=== PATIENT | male | born 1945 | race Caucasian/White ===

== ENCOUNTER 2017-01-09 01:14 | Emergency (ER) | payer MEDICARE ==
[~2017-01-09] VITALS: Ht 185.4 cm; Wt 143.0 kg
[~2017-01-09 01:14] MED LIST: ASPI325T PO; CARD240C6 PO; DHEA50CA PO; GLUCTAB PO; HYDR-3533 PO; METO50TA PO; PRAZ2 PO; PRAZ5CAP16 PO; RANI150 PO
[2017-01-09] MEDS ORDERED: IOHEXOL 350 MG/ML 10 ML VIAL (for RAD DIAG) IVCONTRAST ONE (01:15)
[2017-01-09 01:19] VITALS: BP 169/93; PULSE 80; RESP 14; TEMP 97.6; O2SAT 90
[2017-01-09] MEDS ORDERED: SODIUM CHLOR 0.9% 1000 ML INJ 1,000 ML IV SCH (01:42)
[2017-01-09 02:14] LABS: AUTOMATED NEUTROPHIL # 6.7 TH/MM3 (1.8-7.7); BASOPHIL # 0.4 TH/MM3 (0-0.2); BASOPHIL % 4.9 % (0.0-2.0); EOSINOPHIL # 0.1 TH/MM3 (0-0.4); EOSINOPHIL % 0.8 % (0.0-4.0); HEMATOCRIT 46.7 % (39.0-51.0); HEMO FLAGS DIFF FINAL; LYMPH % 11.9 % (9.0-44.0); LYMPHOCYTE # 1.1 TH/MM3 (1.0-4.8); MEAN CELL VOLUME 89.2 FL (80.0-100.0); MEAN CORPUSCULAR HEMOGLOBIN 28.3 PG (27.0-34.0); MEAN CORPUSCULAR HGB CONC 31.7 % (32.0-36.0); MONO % 7.8 % (0.0-8.0); NEUT % 74.6 % (16.0-70.0); PLATELET COUNT 202 TH/MM3 (150-450); RED BLOOD COUNT 5.23 MIL/MM3 (4.50-5.90); RED CELL DISTRIBUTION WIDTH 14.2 % (11.6-17.2)
[2017-01-09 02:21] LABS: CHLORIDE 104 MEQ/L (98-107); POTASSIUM 4.3 MEQ/L (3.5-5.1); SODIUM (NA) 140 MEQ/L (136-145)
[2017-01-09 02:25] LABS: ANION GAP 7 MEQ/L (5-15); BICARBONATE 28.7 MEQ/L (21.0-32.0); BLOOD UREA NITROGEN 17 MG/DL (7-18)
[2017-01-09] MEDS ORDERED: METF500T PO (02:25)
[2017-01-09] MEDS ORDERED: CARD240C6 PO (02:25)
[2017-01-09] MEDS ORDERED: PRAZ2CAP PO (02:25)
[2017-01-09] MEDS ORDERED: METO-426 PO (02:25)
[2017-01-09] MEDS ORDERED: ASPI-183 PO (02:25)
[2017-01-09] MEDS ORDERED: RANI150T PO (02:25)
[2017-01-09 02:28] LABS: ALT (GPT) 25 U/L (12-78); AST (GOT) 15 U/L (15-37); GLOMERULAR FILTRATION RATE 60 ML/MIN (>89)
[2017-01-09 02:29] LABS: TOTAL BILIRUBIN ADULT 0.4 MG/DL (0.2-1.0)
[2017-01-09 02:31] LABS: ALKALINE PHOSPHATASE 107 U/L (45-117)
[2017-01-09 02:40] LABS: BLOOD, URINE MOD (NEG); GLUCOSE,URINE NEG (NEG); KETONE, URINE TRACE mg/dL (NEG); NITRITE,URINE NEG (NEG); PH, URINE 5.5 (5.0-8.5)
--- NOTE | 2017-01-09 02:40 | PD ---
HPI Chief Complaint: Abdominal Pain Time Seen by Provider: 01:31 Travel History International Travel<30 days: No Contact w/Intl Traveler<30days: No Traveled to known affect area: No History of Present Illness HPI This is a 71-year-old male who presents to the emergency Department with onset about 5 hours ago of abdominal pain that feels like a band wrapped around his abdomen, constant, moderate severity with no associated fevers or chills. He had a normal bowel movement one hour ago. He denies any diarrhea. He has felt nauseous but denies any vomiting. He's never had pain like this before. PFSH Past Medical History Arthritis: No Asthma: No Atrial Fibrillation: Yes Autoimmune Disease: No Blood Disorders: No Anxiety: Yes Depression: Yes Heart Rhythm Problems: Yes (AFIB) Cancer: No Cardiac Catheterization: Yes (TWICE, NO STENTS) Cardiovascular Problems: Yes High Cholesterol: Yes Chemotherapy: No Chest Pain: No Congestive Heart Failure: No COPD: No Cerebrovascular Accident: No Diabetes: Yes Patient Takes Glucophage: Yes Diminished Hearing: No Endocrine: No GERD: Yes Glaucoma: No Genitourinary: No Headaches: No Hepatitis: No Hiatal Hernia: No Hypertension: Yes Immune Disorder: No Kidney Stones: No Musculoskeletal: No Neurologic: No Psychiatric: No Reproductive: No Respiratory: No Immunizations Current: No Migraines: No Myocardial Infarction: No Pneumonia: Yes Radiation Therapy: No Renal Failure: No Seizures: No Sickle Cell Disease: No Sleep Apnea: No Thyroid Disease: No Ulcer: No Tetanus Vaccination: < 5 Years Influenza Vaccination: Yes Past Surgical History Abdominal Surgery: No AICD: No Appendectomy: No Arteriovenous Shunt: No Cardiac Surgery: No Cholecystectomy: No Ear Surgery: No Endocrine Surgery: No Eye Surgery: Yes (BILATERAL LENSE REPLACED) Genitourinary Surgery: No Gynecologic Surgery: No Insulin Pump: No Joint Replacement: No Oral Surgery: Yes (TONSILECTOMY) Pacemaker: No Thoracic Surgery: No Tonsillectomy: Yes ("I WAS IN 9TH GRADE") Other Surgery: Yes Social History Alcohol Use: Yes (TWICE A WEEK) Tobacco Use: No Substance Use: No Allergies-Medications (Allergen,Severity, Reaction): Coded Allergies: penicillin G (Unverified Allergy, Severe, FINGER BLISTERS, 01/09/17) Reported Meds & Prescriptions Reported Meds & Active Scripts Active Reported Ranitidine (Ranitidine HCl) 150 Mg Tab 150 Mg PO BID Prazosin (Prazosin HCl) 2 Mg Cap 2 Mg PO BID Metoprolol Tartrate 75 Mg Tab 75 Mg PO BID Metformin (Metformin HCl) 500 Mg Tab 500 Mg PO BIDPC Cardizem CD 24 HR (Diltiazem CD 24 HR) 240 Mg Caper 240 Mg PO DAILY Aspirin 325 Mg Tab 325 Mg PO DAILY Review of Systems Except as stated in HPI: all other systems reviewed are Neg Physical Exam Narrative GENERAL:Well appearing, no acute distress SKIN: Focused skin assessment warm and dry. HEAD: Atraumatic. Normocephalic. EYES: Pupils equal and round. No injection or drainage. ENT: Moist mucous membranes NECK: Trachea midline. CARDIOVASCULAR: Regular rate and rhythm. No murmur appreciated. RESPIRATORY: Clear to auscultation. Breath sounds equal bilaterally. GASTROINTESTINAL: Abdomen soft, mildly tender to palpation in the epigastrium with no rebound or guarding. MUSCULOSKELETAL: No obvious deformities. NEUROLOGICAL: Awake and alert. No obvious cranial nerve deficits. Moving all extremities. PSYCHIATRIC: Appropriate mood and affect; insight and judgment normal. Data Data Last Documented VS Vital Signs Date Time Temp Pulse Resp B/P (MAP) Pulse Ox O2 Delivery O2 Flow Rate FiO2 01/09/17 02:20 Nasal Cannula 2.00 01/09/17 01:19 97.6 80 14 169/93 (118) 90 Orders Orders Complete Blood Count With Diff (01/09/17 01:42) Comprehensive Metabolic Panel (01/09/17 01:42) Lipase (01/09/17 01:42) Urinalysis - C+S If Indicated (01/09/17 01:42) Ct Abd/Pel W Iv Contrast(Rout) (01/09/17 01:42) Sodium Chlor 0.9% 1000 Ml Inj (Ns 1000 M (01/09/17 01:42) Electrocardiogram (01/09/17 ) Troponin I (01/09/17 01:42) Urine Culture (01/09/17 01:20) Chest, Single Ap (01/09/17 ) Iohexol 350 Inj (Omnipaque 350 Inj) (01/09/17 01:15) Labs Laboratory Tests Test 01/09/17 01:20 01/09/17 02:05 Urine Color YELLOW Urine Turbidity CLEAR Urine pH 5.5 Urine Specific [place] 1.026 Urine Protein 30 mg/dL Urine Glucose (UA) NEG mg/dL Urine Ketones TRACE mg/dL Urine Occult Blood MOD Urine Nitrite NEG Urine Bilirubin NEG Urine Leukocyte Esterase TRACE Urine RBC 10-14 /hpf Urine WBC 15-19 /hpf Urine Squamous Epithelial Cells 0-5 /hpf Urine Bacteria RARE /hpf Microscopic Urinalysis Comment CULTURE INDICATED White Blood Count 9.0 TH/MM3 Red Blood Count 5.23 MIL/MM3 Hemoglobin 14.8 GM/DL Hematocrit 46.7 % Mean Corpuscular Volume 89.2 FL Mean Corpuscular Hemoglobin 28.3 PG Mean Corpuscular Hemoglobin Concent 31.7 % Red Cell Distribution Width 14.2 % Platelet Count 202 TH/MM3 Mean Platelet Volume 8.5 FL Neutrophils (%) (Auto) 74.6 % Lymphocytes (%) (Auto) 11.9 % Monocytes (%) (Auto) 7.8 % Eosinophils (%) (Auto) 0.8 % Basophils (%) (Auto) 4.9 % Neutrophils # (Auto) 6.7 TH/MM3 Lymphocytes # (Auto) 1.1 TH/MM3 Monocytes # (Auto) 0.7 TH/MM3 Eosinophils # (Auto) 0.1 TH/MM3 Basophils # (Auto) 0.4 TH/MM3 CBC Comment DIFF FINAL Differential Comment Blood Urea Nitrogen 17 MG/DL Creatinine 1.20 MG/DL Random Glucose 153 MG/DL Total Protein 7.1 GM/DL Albumin 3.6 GM/DL Calcium Level 8.7 MG/DL Alkaline Phosphatase 107 U/L Aspartate Amino Transf (AST/SGOT) 15 U/L Alanine Aminotransferase (ALT/SGPT) 25 U/L Total Bilirubin 0.4 MG/DL Sodium Level 140 MEQ/L Potassium Level 4.3 MEQ/L Chloride Level 104 MEQ/L Carbon Dioxide Level 28.7 MEQ/L Anion Gap 7 MEQ/L Estimat Glomerular Filtration Rate 60 ML/MIN Troponin I LESS THAN 0.02 NG/ML Lipase 89 U/L MDM Medical Decision Making Medical Screen Exam Complete: Yes Emergency Medical Condition: Yes Interpretation(s) Afebrile, hypertensive, mild hypoxia likely in the setting of obstructive sleep apnea No leukocytosis Electrolytes are reassuring Lipase is normal Urinalysis demonstrates urinary tract infection CT abdomen and pelvis: Cholelithiasis Differential Diagnosis Cholecystitis, cholelithiasis, pancreatitis, gastritis, pyelonephritis Narrative Course This is a 71-year-old male who presents to the emergency department with the unlike abdominal pain in the absence of other symptoms. He has no chest pain or shortness of breath. He was placed on a monitor and an IV was established. Labs are obtained which were reassuring. Urinalysis demonstrates infection. CT abdomen and pelvis demonstrates gallstones. I suspect his symptoms are related to his UTI. Patient will be started on ciprofloxacin and can follow-up with his primary care physician. He was also asked to discuss his gallstones with his primary care physician. Diagnosis Primary Impression: UTI (urinary tract infection) Qualified Codes: N30.00 - Acute cystitis without hematuria Additional Impression: Cholelithiases Qualified Codes: K80.20 - Calculus of gallbladder without cholecystitis without obstruction Patient Instructions: General Instructions Additional Instructions: If you develop fever, persistent vomiting, back pain, or inability to eat return to the emergency department as your urine infection may have progressed to a kidney infection. Complete your antibiotics as prescribed. Stay well hydrated with Gatorade or water. Followup with your primary care physician in 2-3 days if your symptoms have not resolved. Med/Other Pt SpecificInfo: Prescription(s) given Scripts Ciprofloxacin (Ciprofloxacin) 250 Mg Tab 250 MG PO BID for Infection for 7 Days, #14 TAB 0 Refills Prov: Rula Fletcher MD 01/09/17 Disposition: 01 DISCHARGE HOME Condition: Stable Rula Fletcher MD Jan 09, 2017 02:40
[2017-01-09 02:52] LABS: URINE COLOR YELLOW (YELLW/STRAW)
[2017-01-09 02:53] LABS: SQUAMOUS EPITHELIAL CELL URINE 0-5 /hpf (0-5); WBC, URINE 15-19 /hpf (0-5)
[2017-01-09 02:54] LABS: BACTERIA, URINE RARE /hpf; COMMENT (UR) CULTURE INDICATED; CULTURE IF INDICATED CULTURE INDICATED
--- NOTE | 2017-01-09 04:02 | RADRPT ---
EXAM DATE/TIME: 01/09/2017 03:25 [facility] COMPARISON: CT ABDOMEN & PELVIS W CONTRAST, January 09, 2017, 3:00. CHEST SINGLE AP, December 30, 2013, 0:38. INDICATIONS : Short of breath MEDICAL HISTORY : Diabetes mellitus type II. Hypertension SURGICAL HISTORY : None. ENCOUNTER: Initial ACUITY: 1 day PAIN SCORE: 0/10 LOCATION: Bilateral chest FINDINGS: The cardiac silhouette is enlarged in transverse diameter. There is elevation of the right hemidiaphr agm. There is prominence of the central pulmonary vasculature with indistinct vascular margins compat ible with vascular congestion but no evidence of overt failure. CONCLUSION: 1. Cardiomegaly and findings of vascular congestion without overt failure. Dex Gunter MD on January 09, 2017 at 3:59 Board Certified Radiologist. This report was verified electronically.
--- NOTE | 2017-01-09 04:05 | RADRPT ---
EXAM DATE/TIME: 01/09/2017 03:00 [facility] COMPARISON: No previous studies available for comparison. INDICATIONS : Abdomen pain IV CONTRAST: 71 cc Omnipaque 350 (iohexol) IV ORAL CONTRAST: No oral contrast ingested. RADIATION DOSE: 26.65 CTDIvol (mGy) MEDICAL HISTORY : Cardiovascular disease. Hypertension. Diabetes SURGICAL HISTORY : Orthopedic ENCOUNTER: Initial ACUITY: 1 day PAIN SCALE: 6/10 LOCATION: Abdomen TECHNIQUE: Volumetric scanning of the abdomen and pelvis was performed. Using automated exposure control and ad justment of the mA and/or kV according to patient size, radiation dose was kept as low as reasonably achievable to obtain optimal diagnostic quality images. DICOM format image data is available electro nically for review and comparison. FINDINGS: There is subsegmental atelectasis in the both bases. The liver and spleen are normal in size and no focal defects are identified. There are multiple stones within the gallbladder without wall thickenin g or pericholecystic fluid the largest measuring 7 mm. The pancreas demonstrates no evidence of mass and there is no dilatation of the pancreatic duct. The adrenal glands and kidneys appear normal bilat erally. No hydronephrosis or mass lesions are identified. Examination of the pelvis demonstrates no evidence of free fluid or pelvic mass. No abnormally enlarg ed inguinal or retroperitoneal lymph nodes are present. The bladder is unremarkable. There is diverti culosis without evidence of diverticulitis. Fat containing umbilical hernia is presentThe prostate gl and is moderately enlarged impinging on the bladder base. CONCLUSION: 1. No evidence of acute abdominal or pelvic process. No masses are identified. 2. Cholelithiasis 3. Fat containing umbilical hernia Dex Gunter MD on January 09, 2017 at 4:01 Board Certified Radiologist. This report was verified electronically.
[2017-01-09] MEDS ORDERED: CIPR250T2 PO (04:11)
[2017-01-09 04:20] VITALS: BP 203/116; PULSE 83; RESP 20; O2SAT 93
[2017-01-09 04:30] VITALS: BP_SYST 173; BP_SYST 191; BP_DIAS 116; BP_DIAS 117
--- NOTE | 2017-01-09 12:17 | EKG ---
Date Performed: 01/09/2017 Time Performed: 01:51:06 PTAGE: 71 years EKG: ATRIAL FIBRILLATION Poor initial anterior forces, which probably is a normal variant ABNORM AL ECG PREVIOUS TRACING : 12/30/2013 00.25 Since previous tracing, no significant change. DOCTOR: Clem Carpenter Interpretating Date/Time 01/09/2017 12:16:20
== END 2017-01-09 04:42 | disposition home or self-care (01) ==
LOC: PHED 01:14
DX: N30.00 Acute cystitis without hematuria (principal); K80.20 Calculus of gallbladder without cholecystitis without obstruction; R09.02 Hypoxemia; R94.31 Abnormal electrocardiogram [ECG] [EKG]; E11.9 Type 2 diabetes mellitus without complications; I10 Essential (primary) hypertension; E78.00 Pure hypercholesterolemia, unspecified; Z79.84 Long term (current) use of oral hypoglycemic drugs; Z86.79 Personal history of other diseases of the circulatory system; Z86.59 Personal history of other mental and behavioral disorders; Z87.19 Personal history of other diseases of the digestive system
CPT/HCPCS: 71010; 74177; 80053; 81001; 83690; 84484; 85025; 87086; 93005; 96360; 99285; J7030; Q9967